=== PATIENT | female | born 1975 | race Caucasian/White ===

== ENCOUNTER 2017-01-03 06:05 | Inpatient (IN) | payer OTHER ==
[~2017-01-03] VITALS: Ht 162.6 cm; Wt 65.0 kg
[2017-01-03 07:18] VITALS: BP 116/75
[2017-01-03] MEDS ORDERED: PREN1TAB60 PO (07:20)
[2017-01-03] MEDS ORDERED: MISOPROSTOL 25 MCG TABLET ONE (07:22)
[2017-01-03] MEDS ORDERED: MISOPROSTOL 25 MCG TABLET SL PRN (07:30)
[2017-01-03] MEDS ORDERED: NEWBORN KIT ONE ×2 (07:51→19:24)
[2017-01-03] MEDS: D5%-LACTATED RINGERS 1,000 ML IV SCH ×2 (08:07→16:07)
[2017-01-03] MEDS ORDERED: OXYTOCIN 30U/ 0.9% NaCL 500ML 500 ML IV PRN (08:07)
[2017-01-03] MEDS ORDERED: OXYTOCIN 30U/ 0.9% NaCL 500ML 500 ML IV ONE (08:07)
[2017-01-03] MEDS ORDERED: ONDANSETRON 2MG/ML, 2ML IVPush PRN (08:30)
[2017-01-03] MEDS ORDERED: FENTANYL PF 100 MCG/2ML IVPush PRN (08:30)
[2017-01-03] MEDS ORDERED: FENTANYL PF 100 MCG/2ML IV PRN (08:30)
[2017-01-03] MEDS ORDERED: TERBUTALINE 1 MG/ML, 1ML IVPush PRN (08:30)
[2017-01-03] MEDS: PLEASE ENTER HEIGHT AND WEIGHT MC SCH ×2 (08:30→16:30)
[2017-01-03] MEDS: LACTATED RINGERS 1,000 ML IV SCH ×4 (08:30→18:31)
[2017-01-03] MEDS ORDERED: OXYTOCIN 30U/ 0.9% NaCL 500ML 500 ML ONE ×2 (12:06→23:42)
[2017-01-03] MEDS ORDERED: BUPIVACAINE 0.25% ONE (12:54)
[2017-01-03] MEDS ORDERED: FENTANYL PF 100 MCG/2ML ONE (12:54)
[2017-01-03] MEDS ORDERED: FENTANYL/BUPIV./NS/PF 250 ML EPIDCONT ONE (12:54)
[2017-01-03] MEDS ORDERED: ONDANSETRON 2MG/ML, 2ML ONE (16:59)
[2017-01-03] MEDS ORDERED: FENTANYL/BUPIV./NS/PF 250 ML EPIDCONT SCH (18:31)
[2017-01-03] MEDS ORDERED: LACTATED RINGERS 1,000 ML IVBOLUS PRN (19:00)
[2017-01-03] MEDS ORDERED: IBUPROFEN 600 MG TABLET ONE (23:22)
[2017-01-03] MEDS: OXYTOCIN 30U/ 0.9% NaCL 500ML 500 ML IV SCH (23:23)
[2017-01-03] MEDS ORDERED: CARBOPROST TROMETHAMINE 250 MCG/ML, 1ML IM PRN (23:30)
[2017-01-03] MEDS ORDERED: ONDANSETRON 2MG/ML, 2ML IV PRN (23:30)
[2017-01-03] MEDS ORDERED: CALCIUM CARBONATE 500 MG TAB.CHEW PO PRN (23:30)
[2017-01-03] MEDS ORDERED: HYDROcodone/APAP 5/325 TABLET PO PRN ×2 (23:30)
[2017-01-03] MEDS ORDERED: ACETAMINOPHEN 325 MG TABLET PO PRN (23:30)
[2017-01-03] MEDS ORDERED: DOCUSATE 100 MG CAPSULE PO PRN (23:30)
[2017-01-03] MEDS ORDERED: METHYLERGONOVINE 0.2 MG/ML IM PRN (23:30)
[2017-01-03] MEDS ORDERED: MISOPROSTOL 200 MCG TABLET PR PRN (23:30)
[2017-01-04] MEDS: D5%-LACTATED RINGERS 1,000 ML IV SCH (00:07)
[2017-01-04] MEDS: PLEASE ENTER HEIGHT AND WEIGHT MC SCH (00:30)
[2017-01-04 02:10] VITALS: BP 110/65
[2017-01-04] MEDS: LACTATED RINGERS 1,000 ML IV SCH ×4 (02:31→16:07)
[2017-01-04 04:00] VITALS: BP 103/66
[2017-01-04] MEDS ORDERED: PRENATAL VIT/IRON/FA 1 EACH TABLET ONE (08:00)
[2017-01-04] MEDS ORDERED: PRENATAL VIT/IRON/FA 1 EACH TABLET PO SCH (09:00)
[2017-01-04] MEDS: OXYTOCIN 30U/ 0.9% NaCL 500ML 500 ML IV SCH (09:23)
[2017-01-04 10:15] VITALS: BP 109/66
[2017-01-04] MEDS: IBUPROFEN 600 MG TABLET PO PRN ×3 (10:22→22:51)
[2017-01-04 12:30] VITALS: BP 102/70
[2017-01-04 17:20] VITALS: BP 117/74
[2017-01-04] MEDS ORDERED: HYDR-3240 PO (18:43)
[2017-01-04] MEDS ORDERED: IBUP-1222 PO (18:44)
[2017-01-04 19:30] VITALS: BP 107/62
== END 2017-01-04 23:45 | disposition home or self-care (01) | DRG 775 ==
LOC: MERGE 06:05 → LDIP 06:05 → 2NW 01-04 01:45
PROVIDERS: ADMIT Obstetrics & Gynecology; ATTEND Obstetrics & Gynecology
PROC: 10E0XZZ Delivery of Products of Conception, External Approach (ICD-10-PCS; principal; 2017-01-03)
PROC: 10907ZC Drainage of Amniotic Fluid, Therapeutic from Products of Conception, Via Natural or Artificial Opening (ICD-10-PCS; 2017-01-03)
PROC: 3E033VJ Introduction of Other Hormone into Peripheral Vein, Percutaneous Approach (ICD-10-PCS; 2017-01-03)
PROC: 00HU33Z Insertion of Infusion Device into Spinal Canal, Percutaneous Approach (ICD-10-PCS; 2017-01-03)
PROC: 3E0R3CZ (ICD-10-PCS; 2017-01-03)
DX: O48.0 Post-term pregnancy (principal); Z37.0 Single live birth; Z3A.40 40 weeks gestation of pregnancy; O77.0 Labor and delivery complicated by meconium in amniotic fluid
CPT/HCPCS: 36415; 59200; 85025; 86850; 86900; J2405; J3010; J3490; J2590; J7120